=== PATIENT | female | born 1995 | race African-American/Black ===

== ENCOUNTER 2020-09-14 10:59 | Emergency (ER) | payer SELFPAY ==
[~2020-09-14] VITALS: Ht 177.8 cm; Wt 72.7 kg
[2020-09-14 11:03] VITALS: TEMP 97.6
[2020-09-14 12:15] LABS: BASO % 0.5 % (0.0-2.0); EOS # 0.5 (0.0-0.7); EOS % 7.1 % (0-4.0); GRAN # 3.8 (1.4-6.5); GRAN % 58.8 % (42.2-75.2); HEMATOCRIT 39.7 % (37.0-47.0); HEMOGLOBIN 13.3 g/dl (12.5-16.0); LYMPH # 1.8 (1.2-3.4); LYMPH % 27.1 % (20.0-51.0); MEAN CELL VOLUME 87 fl (80.0-100.0); MEAN CORPUSCULAR HEMOGLOBIN 29 pg (27.0-31.0); MEAN CORPUSCULAR HGB CONC 34 g/dl (33.0-37.0); MEAN PLATELET VOLUME 8.9 fl (7.4-10.4); MONO # 0.4 (0.1-0.6); MONO % 6.3 % (1.7-9.3); PLATELET COUNT 255 K/mm3 (130-400); RED BLOOD COUNT 4.55 M/mm3 (4.10-5.30); REDCELL DISTRIBUTION WIDTH-CV 13.2 % (11.5-14.5)
[2020-09-14 12:22] LABS: TRICYCLIC ANTIDEPRESS URINE NEGATIVE
[2020-09-14 12:29] LABS: ALBUMIN 4.5 gm/dL (3.5-5.0); CALCIUM 9.1 mg/dL (8.4-10.2); CREATININE, serum 0.59 (0.52-1.25); POTASSIUM 4.2 mmol/L (3.4-5.0); TOTAL PROTEIN 7.9 gm/dL (6.4-8.2)
[2020-09-14 13:28] VITALS: BP 115/76; PULSE 67
== END 2020-09-14 13:29 | disposition home or self-care (01) ==
LOC: COL.ER 10:59
PROVIDERS: Family Medicine; Physician Assistant
DX: S06.0X9A Concussion with loss of consciousness of unspecified duration, initial encounter (principal); R41.82 Altered mental status, unspecified; W19.XXXA Unspecified fall, initial encounter; Y92.59 Other trade areas as the place of occurrence of the external cause; Y99.0 Civilian activity done for income or pay

== ENCOUNTER 2020-11-22 11:22 | Emergency (ER) | payer SELFPAY ==
[~2020-11-22] VITALS: Ht 175.3 cm; Wt 80.3 kg
[2020-11-22 11:28] VITALS: TEMP 98.8
[2020-11-22] MEDS ORDERED: BACTRIM DS 8001 TAB PO (15:14)
[2020-11-22] MEDS ORDERED: CEPHALEXIN500 M1 PO (15:14)
[2020-11-22 15:21] VITALS: BP 121/79; PULSE 61
== END 2020-11-22 15:52 | disposition home or self-care (01) ==
LOC: COL.ER 11:22
DX: L72.11 Pilar cyst (principal)